=== PATIENT | male | born 1950 | race Caucasian/White ===

== ENCOUNTER 2017-07-17 08:27 | Day surgery (SDC) | payer OTHER ==
[~2017-07-17] VITALS: Ht 188 cm; Wt 119.0 kg
[~2017-07-17 08:27] MED LIST: ASPI-232 PO; CEFAZOLIN 1000MG/55 ML D5W 55 ML IV SCH; CEFAZOLIN IV 1,000 MG in DEXTROSE 5% 50ML IV SCH; FOLI1TAB7 PO; FURO-85 PO; INSPMPNVLG; LACTATED RINGER'S 1000ML IV SCH; LISI-461 PO; METF-384 PO; METO1TAB69 PO; OMEP40CA PO; POTA-74 PO; TRAM-10 PO
[2017-07-17 09:15] VITALS: BP 163/94; PULSE 71; TEMP 36.7; O2SAT 97; Ht 188 cm; Wt 119.0 kg
[2017-07-17] MEDS ORDERED: OMEP20TA14 PO (09:15)
[2017-07-17] MEDS ORDERED: ATOR-26 PO (09:15)
[2017-07-17] MEDS ORDERED: NTRGSL/4 UT (09:15)
[2017-07-17] MEDS ORDERED: ESCI10TA17 PO (09:15)
--- NOTE | 2017-07-17 10:52 | History & Physical Bridge Note ---
H&P Re-Evaluation Bridge Note: I have examined the patient, reviewed the History & Physical and in the interval since the performance of the History & Physical I have noted the following changes of clinical significance: No changes noted
--- NOTE | 2017-07-17 10:52 | Procedure Note ---
Pre-Mod Sedation Assessment General Date of Moderate Sedation: Jul 17, 2017. Vital Signs: Vital Signs Past 12 Hours Date Time Temp Pulse Resp B/P (MAP) Pulse Ox O2 Delivery O2 Flow Rate FiO2 07/17/17 09:15 36.7 71 18 163/94 (117) 97 Room Air Review Cardiovascular: regular rate, rhythm Abdomen: soft Lungs: lungs clear Airway Class: II Pre-Sedation Airway Assessment Oral Cavity: Dentures Hx of Sleep Apnea: No Smoking Status: Former Smoker Mallampati Classification: Class II ASA Classification: Class II Procedure Planning Contraindications-for Mod Sed: None Yes Notes The planned sedation has been discussed with the patient and consent obtained. I have identified the patient, determined the appropriateness of sedation and have assessed the patient immediately prior to the procedure. All medicine(s) and interventions are by my order.
[2017-07-17] MEDS ORDERED: BUPIVACAINE 0.5 % 5 MG/1 ML MPF 30ML VIAL ONE (11:33)
[2017-07-17] MEDS ORDERED: LIDOCAINE HCL 1% 20 ML VIAL ONE (11:33)
[2017-07-17] MEDS ORDERED: BACITRACIN 50000 UNIT VIAL ONE (11:33)
[2017-07-17] MEDS ORDERED: FENTANYL CITRATE INJ 50 MCG/1 ML 2 ML VIAL ONE (11:43)
[2017-07-17] MEDS ORDERED: MIDAZOLAM HCL 5 MG/ML 1 ML VIAL ONE (11:43)
[2017-07-17] MEDS ORDERED: KEFZOL SPECIAL PROCEDURE STOCK 1 GM ADDVIAL IV ONE (11:50)
--- NOTE | 2017-07-17 12:40 | Procedure Note ---
Post-Mod Sedation Assessment General Date of Moderate Sedation Jul 17, 2017. Vital Signs: Vital Signs Past 12 Hours Date Time Temp Pulse Resp B/P (MAP) Pulse Ox O2 Delivery O2 Flow Rate FiO2 07/17/17 12:30 54 16 116/64 (81) 96 Room Air 07/17/17 09:15 36.7 71 18 163/94 (117) 97 Room Air Review - Discharge Criteria Vital Signs Stable: Yes Alert/Oriented/Conversant: Yes Returned to Baseline Mental St: Yes Nausea Absent/Minimal: Yes Pain/Discomfort/Absent/Minimal: Yes Normal/Baseline Respirations: Yes Active Bleeding?: No Pt Received D/C Instructions: N/A Prescriptions Given: None Specific Proced. D/C Criteria Distal Pulses Present (Cardiac: N/A Groin site assessed-Card Cath: N/A Voided Prior To Discharge: N/A Discharged Patients Adult Escort/Transportation: N/A
--- NOTE | 2017-07-17 12:42 | [facility] Post Operative Brief Note ---
Immediate Operative Summary Operative Date Jul 17, 2017. Pre-Operative Diagnosis icm, icd at [facility] Post-Operative Diagnosis same Procedure(s) Performed single chamber rate responsive icd generator change Surgeon charlene meneses General Dentist Surgeon(s) none Estimated Blood Loss <5cc Findings see official report Fluids (cc crystalloids) 150cc Specimens none Drains none Anesthesia 3mg versed and 150mcg fentatnyl Complication(s) None Disposition asu
--- NOTE | 2017-07-17 12:44 | Discharge Instructions ---
Discharge Instructions Date of Service Jul 17, 2017. Visit Reason for Visit: Ischemic Cardiomyopathy Discharge Discharge Diagnosis / Problem: icd at [facility], [facility] Discharge Goals Goal(s): Improve function Activity Recommendations Activity Limitations: as noted below Lifting Limitations: no more than 10 pounds (do not lift more than 10 pounds with the left arm for 2 weeks) May Resume Sexual Activity: after one week Shower/Bathe: tomorrow Driving or Machine Use: resume 1 day after discharge Anesthesia . Post Anesthesia Instructions: If you have had General Anesthesia or IV Sedation: * Do not drive today. * Resume driving when surgeon permits. * Do not make important decisions or sign legal documents today. * Call surgeon for: 1. Temperature elevations greater than 101 degrees F. 2. Uncontrollable pain. 3. Excessive bleeding. 4. Persistent nausea and vomiting. 5. Medication intolerance (nausea, vomiting or rash). * For nausea and vomiting use only clear liquids such as: tea, soda, bouillon until nausea subsides, then gradually increase diet as tolerated. * If you have any concerns or questions, call your surgeon's office. If physician is unavailable and it is an emergency, call 911 or go to the nearest emergency room. . Instructions / Follow-Up Instructions / Follow-Up ACTIVITY RECOMMENDATIONS: * Do not lift more than 10 pounds with the left arm for 2 weeks. SPECIAL CARE INSTRUCTIONS: * If bleeding occurs, apply direct pressure to area for 5 minutes. * Call your doctor if you have severe pain, fever, drainage or bleeding at site. * Keep dry for 24 hours. * Keep any scheduled doctor's appointment. * Implant Card - hand held device with website information given. SKIN IRRITATION: * You may experience some redness and/or swelling in the area where radiation was administered. If any skin irritation occurs, please contact your family physician. FOLLOW UP VISIT: Keep any scheduled doctor appointments. Diet Recommendations Recommended Home Diet: resume previous diet Procedures Procedures Performed: single chamber rate responsive icd generator change Pending Studies Studies pending at discharge: no Medical Emergencies . Who to Call and When: Medical Emergencies: If at any time you feel your situation is an emergency, please call 911 immediately. . Non-Emergent Contact Non-Emergency issues call your: Street Sweeper Operator . . "Provider Documentation" section prepared by Danielle Mendez. .
[2017-07-17 12:50] VITALS: BP 131/67; PULSE 59; TEMP 36.5; O2SAT 95
[2017-07-17 13:06] VITALS: BP 118/63; PULSE 63; O2SAT 94
[2017-07-17 13:23] VITALS: BP 117/60; PULSE 59; O2SAT 94
--- NOTE | 2017-07-17 13:33 | OPERATIVE REPORT ---
DATE OF OPERATION: 07/17/2017 PREOPERATIVE DIAGNOSIS: Ischemic cardiomyopathy, single chamber implantable cardiac defibrillator at [facility]. POSTOPERATIVE DIAGNOSIS: Same. PROCEDURE: Single chamber rate responsive implantable cardiac defibrillator generator change. SURGEON: Dr. Danielle Mendez. SOLID WASTE MANAGER: None. ANESTHESIA: Monitored conscious sedation administered under my supervision by Félix Donovan, total of 3 mg of Versed and 75 mcg of fentanyl. Start time 11:53 a.m., end time 12:30. INTRAVENOUS FLUIDS: 150 mL. BLOOD LOSS: Less than 5 mL. ANTIBIOTICS: 2 grams. COMPLICATIONS: None. CONDITION: Stable. URINE OUTPUT: No applicable. SPECIMENS: None. FINDINGS: None. DRAINS: None. INDICATIONS: This is a 66-year-old gentleman who has past medical history for coronary artery disease which he underwent a myocardial infarction in 2007, underwent CABG x4, BIRCH to LAD, SVG to diagonal, RCA and RV branch block, VTVF arrest, ischemic cardiomyopathy, underwent a single chamber implantable cardiac defibrillator in 2007, ejection fraction 35-40%, hypertension, hyperlipidemia, diabetes, chronic back and shoulder pain. At his most recent device check found to hit [facility] and was recommended a generator change. CONSENT: Consent was obtained prior to the patient going into the electrophysiology lab. The patient was informed of risks, benefits, and alternatives of procedure. Risks include but not limited to sudden cardiac , cardiac arrhythmias, cerebrovascular accident, myocardial infarction, bleeding and infection. The patient understood these risks and agreed to the procedure as planned. Informed consent was obtained. DESCRIPTION OF THE PROCEDURE: The patient was brought into the electrophysiology lab in a fasting state. He was connected to continuous director of cardiac cath lab. A timeout was performed to ensure patient's identity and procedure correctly. The patient received prophylactic antibiotics prior to incision. Moderate conscious sedation was given throughout the procedure for patient's comfort level. [place] precautions maintained throughout procedure. 15 mL of 1% lidocaine, bupivacaine mixture were given over the prior surgical incision. An incision was made over the prior surgical incision. Blunt dissection was performed down to the pulse generator. The capsule was disrupted using Bovie and then the pulse generator was ultimately freed from the capsule and removed from the body. The leads were detached from the pulse generator and tested intraoperatively. The new defibrillator generator was then attached to the leads making sure that the pins were in appropriate position, passed the set screws and the set screws were tightened. The capsule was disrupted inferiorly and caudally to allow for new blood flow. The pocket was then flushed with copious amounts of bacitracin saline wash and inspected for hemostasis. The new pulse generator was then placed in the pocket, making sure that the leads were lying flat beneath the device. The incision was closed in a 3-layer fashion using 2-0 Vicryl interrupted suture followed by 3-0 Vicryl interrupted suture followed by a 4-0 Monocryl running stitch and Dermabond was applied. EQUIPMENT: 1. Explanted generator is Medtronic model #[id number] Nehemias 2, serial number [id number], implanted 10/07/2008. Voltage 2.6 volts at 9917. 2. New defibrillator generator is a Medtronic Visia AF MRI VR SureScan, model number ZOSR2P0, serial number [id number]. 3. Right ventricular lead model number 6947-65, serial number [id number], implanted 10/07/2008. INTRAOPERATIVE TESTING: R-waves 23.2 millivolts, impedance 611 ohms, threshold 0.6 volts at 0.9 milliamps. FINAL MEASUREMENTS THROUGH THE DEVICE: R-waves 20 millivolts, impedance 494 ohms, threshold 0.75 volts at 0.4 milliseconds. RV 53 ohms, SVC 63 ohms. FINAL PARAMETERS: VVI 40, right ventricular amplitude 1.5 volts, pulse width 0.4 milliseconds, sensitivity 0.3 millivolts. A VT monitor zone at 133 beats per minute with 20 detection intervals and a VF zone at 188 beats per minute with 24-32 detection interval. The DFTs back from initial implant 10/07/2008 were 15 joules. IMPRESSION: Successful single chamber rate responsive implantable cardiac defibrillator generator change secondary to ischemic cardiomyopathy and device at [facility]. PLAN: Monitor patient post-sedation. He is not allowed to do any heavy lifting with the left arm for 2 weeks. He can continue his home medications. He should follow up in our device clinic in 7-10 days for device and wound check. I attest to the content of the Intraoperative Record and any orders documented therein. Any exception s are noted below.
[2017-07-17 13:45] VITALS: BP 115/59; PULSE 61; TEMP 36.6; O2SAT 96
== END 2017-07-17 14:00 | disposition home or self-care (01) ==
LOC: C.ACU 08:27
PROVIDERS: ATTEND Internal Medicine
DX: Z45.02 Encounter for adjustment and management of automatic implantable cardiac defibrillator (principal); I25.10 Atherosclerotic heart disease of native coronary artery without angina pectoris; I10 Essential (primary) hypertension; E11.9 Type 2 diabetes mellitus without complications; E78.5 Hyperlipidemia, unspecified; I73.9 Peripheral vascular disease, unspecified; G25.0 Essential tremor; K21.9 Gastro-esophageal reflux disease without esophagitis; I25.2 Old myocardial infarction; Z98.61 Coronary angioplasty status; Z95.1 Presence of aortocoronary bypass graft; Z79.4 Long term (current) use of insulin; Z79.82 Long term (current) use of aspirin; Z87.891 Personal history of nicotine dependence; Z89.422 Acquired absence of other left toe(s); Z80.0 Family history of malignant neoplasm of digestive organs

== ENCOUNTER → 2017-10-24 | Day surgery (SDC) | payer OTHER ==
[2017-10-19 09:25] VITALS: Ht 182.9 cm; Wt 119.1 kg
[~2017-10-24] VITALS: Ht 182.9 cm; Wt 119.1 kg
[~2017-10-24] MED LIST changes: +500ML BSS 0.3ML EPI 1:1000PF IRRIG ONE; +ACET-1256 PO; +ACETAMINOPHEN 325 MG TAB PO PRN; +AMVISC PLUS 0.8ML SYRINGE INT OCU ONE; +ATOR-26 PO; +ATROPINE SULFATE 0.1 MG/ML 5ML SYR IV PRN; +BSS FLUSH ONE; -CEFAZOLIN 1000MG/55 ML D5W 55 ML IV SCH; -CEFAZOLIN IV 1,000 MG in DEXTROSE 5% 50ML IV SCH; +ENDOCOAT 0.85ML SYRINGE INT OCU ONE; +ESCI5TAB PO; +EpHEDrine SULFATE INJ 50 MG/ML AMP IV PRN; +EpINEphrine INJ 1MG/ML AMP 1 MG/ML AMP ONE; -FOLI1TAB7 PO; +FOLI1TAB8 PO; +LACTATED RINGER'S 1000ML 500 ML IV SCH; -LACTATED RINGER'S 1000ML IV SCH; +LIDOCAINE 4% OP SOLN DROP CHARGE ONE; +LIDOCAINE 4% OP SOLN DROP CHARGE OPL SCH; +LIDOCAINE HCL 1% MPF 2 ML VIAL ONE; -LISI-461 PO; +LSN20 PO; +METO100T44 PO; -METO1TAB69 PO; +MIDAZOLAM HCL 1 MG/ML 2ML VIAL ONE; +MIX: 4ML BSS 1ML EPI 1:1000 PF TOP ONE; +MOXIFLOXACIN OPH SOLN PER DROP CHARGE ONE; +NTRGSL/4 UT; -OMEP40CA PO; +PANT40TA PO; +POVIDONE-IODINE OP SOLN 30 ML BTL ONE; +PROPARACAINE 0.5% OP SOLN PER DROP CHARGE OPL SCH; +TOBRAMYCIN/DEXAMETHASONE OPH OINT PER APPLN CHARGE ONE; -TRAM-10 PO
[2017-10-24] MEDS: PHENYLEPHRINE HCL 2.5% OP SOLN PER DROP CHARGE OPL SCH ×3 (07:16→07:26)
[2017-10-24] MEDS: TROPICAMIDE 1% OP SOLN PER DROP CHARGE OPL SCH ×3 (07:17→07:27)
[2017-10-24] MEDS: CYCLOPENTOLATE HCL 1% OP SOLN PER DROP CHARGE OPL SCH ×3 (07:18→07:28)
[2017-10-24] MEDS: MOXIFLOXACIN OPH SOLN PER DROP CHARGE OPL SCH ×3 (07:19→07:29)
--- NOTE | 2017-10-24 08:37 | [facility] Post Operative Brief Note ---
Immediate Operative Summary Operative Date Oct 24, 2017. Pre-Operative Diagnosis Left eye cataract Post-Operative Diagnosis Same as preop Procedure(s) Performed Left Cataract Phacoemulsification With Intraocular Lens Implant Surgeon Dr. Reese Fitness And Wellness Director Surgeon(s) None Estimated Blood Loss 0 mL Findings left cataract Specimens None Complication(s) None Disposition
--- NOTE | 2017-10-24 08:38 | [facility] Operative Report ---
Operative Report Date of Service Oct 24, 2017. Operative Report DATE OF OPERATION: 10/24/17 PREOPERATIVE DIAGNOSIS: Senile nuclear cataract, left eye POSTOPERATIVE DIAGNOSIS: Senile nuclear cataract, left eye PROCEDURE PERFORMED: Phacoemulsification with intraocular lens implantation, left eye SURGEON: Dr. Migue Reese ANESTHESIA: Topical with 1% intracameral lidocaine and monitored anesthesia care COMPLICATIONS: None DESCRIPTION OF PROCEDURE: After positively identifying the patient both verbally and by wristband in the preoperative area, the left eye was marked as the operative eye. The patient was then brought back to the operating room by the anesthesia and nursing staff where they were given a drop of Lidocaine and betadine into the operative eye. They were then sterilely prepped and draped in the standard fashion typical for ophthalmic surgery. Steri-strips were placed along the upper eyelids to keep the lashes back, and a lid speculum was placed into the operative eye. At this point, a documented time out was performed with members of the ophthalmology, nursing, and anesthesia staffs all agreeing upon the correct patient, correct location for surgery, correct procedure, and correct type and power of intraocular lens to be implanted. The microscope was then swung into position. First, a paracentesis wound was made using a sideport blade. Then, in sequence, 1% preservative-free lidocaine followed by Endocoat viscoelastic was injected into the anterior chamber. Next , the main incision was made with a keratome blade in triplanar fashion. A Malyugin ring was inserted due to poor pupil dilation. A sharp cystotome was introduced into the eye and used to create a tear in the anterior capsule, which was directed into a continuous curvilinear capsulorrhexis using Utrata forceps. Hydrodissection was then performed with BSS on a flat-tip cannula. Next, the phacoemulsification handpiece was introduced into the eye and used to remove the nucleus in a mlrlme-sor-[id number] fashion. This was done without complication and then the irrigation-aspiration handpiece was introduced into the eye and used to remove all remaining cortical and epinuclear material. Amvisc was then injected into the anterior chamber as well as into the capsular bag and using the lens injector system, an MX60 22.0 D lens, serial number [id number], and expiration date 06/2020 was injected into the capsular bag and rotated into the correct position. The Malyugin ring was removed. Next, the irrigation-aspiration handpiece was used to remove all remaining Amvisc. BSS was used to hydrate the main wound, and then BSS was injected into the paracentesis site to reach physiologic pressure and then the main wound was checked and found to be watertight. The patient was given drops of Vigamox and Tobradex ointment into the operative eye, and then the surrounding area was cleaned and dried. A clear plastic shield was placed over the eye and the patient was then sat up and taken from the operating room by the anesthesia staff having tolerated the procedure well and suffering no complications. DISPOSITION: The patient was returned to the recovery room in stable condition. I attest to the content of the Intraoperative Record and any orders documented therein. Any exceptions are noted below.
[2017-10-24 08:39] VITALS: TEMP 36.4
--- NOTE | 2017-10-24 08:40 | Discharge Instructions-SurgCtr ---
Discharge Instructions Date of Service Oct 24, 2017. Visit Reason for Visit: Cataract Left Eye Discharge Discharge Diagnosis / Problem: left cataract Discharge Goals Goal(s): Decrease discomfort, Improve function Medications Stopped Medications Name(s): metformin stopped on sunday Activity Recommendations Activity Limitations: as noted below Anesthesia . Post Anesthesia Instructions: If you have had General Anesthesia or IV Sedation: * Do not drive today. * Resume driving when surgeon permits. * Do not make important decisions or sign legal documents today. * Call surgeon for: 1. Temperature elevations greater than 101 degrees F. 2. Uncontrollable pain. 3. Excessive bleeding. 4. Persistent nausea and vomiting. 5. Medication intolerance (nausea, vomiting or rash). * For nausea and vomiting use only clear liquids such as: tea, soda, bouillon until nausea subsides, then gradually increase diet as tolerated. * If you have any concerns or questions, call your surgeon's office. If physician is unavailable and it is an emergency, call 911 or go to the nearest emergency room. . Instructions / Follow-Up Instructions / Follow-Up ACTIVITY RECOMMENDATIONS: * Light activities. * You may walk outside, read, watch television. * You may notice redness on the white part of the eye and some blurry vision - this is normal. MEDICATIONS: Resume previous medications unless instructed otherwise by your surgeon. Start all eye drops at 10:30am today: * Eye drops (until seen in the office tomorrow): Prednisone - one drop in operative eye every 2 hours while awake Ofloxacin - one drop in operative eye every 2 hours while awake Prolensa - one drop in operative eye daily SPECIAL CARE INSTRUCTIONS: * Tape plastic shield over eye to sleep at night. Call your doctor at with any concerns or problems. FOLLOW UP VISIT: Follow-up with Dr Reese at [place] office as scheduled. Diet Recommendations Home Diet: no limitations Procedures Procedures Performed: Left Cataract Phacoemulsification With Intraocular Lens Implant Pending Studies Studies pending at discharge: no Medical Emergencies . Who to Call and When: Medical Emergencies: If at any time you feel your situation is an emergency, please call 911 immediately. . Non-Emergent Contact Non-Emergency issues call your: Surgeon . . "Provider Documentation" section prepared by Migue Reese. .
[2017-10-24 08:55] VITALS: BP 149/79; PULSE 66; O2SAT 97
--- NOTE | 2017-10-24 09:05 | Anesthesia Progress Nt - [facility] ---
Anesthesia Post Op Note Date & Time Oct 24, 2017 at 09:05 Vital Signs Pain Intensity: 0 Vital Signs Past 12 Hours Date Time Temp Pulse Resp B/P (MAP) Pulse Ox O2 Delivery O2 Flow Rate FiO2 10/24/17 08:55 66 16 149/79 (102) 97 Room Air 10/24/17 08:39 36.4 62 16 159/80 (106) 98 Room Air 10/24/17 07:09 36.4 64 22 135/89 (104) 96 Room Air Notes Mental Status: alert / awake / arousable, participated in evaluation Pt Amnestic to Procedure: Yes Nausea / Vomiting: adequately controlled Pain: adequately controlled Airway Patency, RR, SpO2: stable & adequate BP & HR: stable & adequate Hydration State: stable & adequate Anesthetic Complications: no major complications apparent
== END | disposition home or self-care (01) ==
LOC: X.SURG 07:00
PROVIDERS: ATTEND Ophthalmology
DX: E11.36 Type 2 diabetes mellitus with diabetic cataract (principal); H25.12 Age-related nuclear cataract, left eye; I25.10 Atherosclerotic heart disease of native coronary artery without angina pectoris; I11.0 Hypertensive heart disease with heart failure; E78.00 Pure hypercholesterolemia, unspecified; G47.33 Obstructive sleep apnea (adult) (pediatric); E66.9 Obesity, unspecified; Z95.1 Presence of aortocoronary bypass graft; Z89.429 Acquired absence of other toe(s), unspecified side; F17.200 Nicotine dependence, unspecified, uncomplicated; Z79.82 Long term (current) use of aspirin; Z79.899 Other long term (current) drug therapy; Z79.4 Long term (current) use of insulin

== ENCOUNTER → 2017-11-07 | Day surgery (SDC) | payer OTHER ==
[2017-11-05 14:35] VITALS: Ht 182.9 cm; Wt 119.1 kg
[~2017-11-07] VITALS: Ht 182.9 cm; Wt 119.1 kg
[~2017-11-07] MED LIST changes: -LIDOCAINE 4% OP SOLN DROP CHARGE OPL SCH; +LIDOCAINE 4% OP SOLN DROP CHARGE OPR SCH; -PROPARACAINE 0.5% OP SOLN PER DROP CHARGE OPL SCH; +PROPARACAINE 0.5% OP SOLN PER DROP CHARGE OPR SCH
[2017-11-07] MEDS: PHENYLEPHRINE HCL 2.5% OP SOLN PER DROP CHARGE OPR SCH ×3 (07:24→07:34)
[2017-11-07] MEDS: TROPICAMIDE 1% OP SOLN PER DROP CHARGE OPR SCH ×3 (07:25→07:35)
[2017-11-07] MEDS: CYCLOPENTOLATE HCL 1% OP SOLN PER DROP CHARGE OPR SCH ×3 (07:26→07:36)
[2017-11-07] MEDS: MOXIFLOXACIN OPH SOLN PER DROP CHARGE OPR SCH ×3 (07:27→07:37)
--- NOTE | 2017-11-07 08:40 | [facility] Post Operative Brief Note ---
Immediate Operative Summary Operative Date Nov 07, 2017. Pre-Operative Diagnosis Cataract Right Eye Post-Operative Diagnosis Same Procedure(s) Performed Right Cataract Phacoemulsification With Intraocular Lens Implant Surgeon Dr. Reese Financial Reserve Clerk Surgeon(s) None Estimated Blood Loss 0 Findings Consistent with Post-Op Diagnosis Specimens None Anesthesia Type MAC Disposition Accompanied Pt To Recovery: no Disposition:
[2017-11-07 08:41] VITALS: TEMP 36.7
--- NOTE | 2017-11-07 08:41 | [facility] Operative Report ---
Operative Report Date of Service Nov 07, 2017. Operative Report DATE OF OPERATION: 11/07/17 PREOPERATIVE DIAGNOSIS: Senile nuclear cataract, right eye POSTOPERATIVE DIAGNOSIS: Senile nuclear cataract, right eye PROCEDURE PERFORMED: Phacoemulsification with intraocular lens implantation, right eye SURGEON: Dr. Migue Reese ANESTHESIA: Topical with 1% intracameral lidocaine and monitored anesthesia care COMPLICATIONS: None DESCRIPTION OF PROCEDURE: After positively identifying the patient both verbally and by wristband in the preoperative area, the right eye was marked as the operative eye. The patient was then brought back to the operating room by the anesthesia and nursing staff where they were given a drop of Lidocaine and betadine into the operative eye. They were then sterilely prepped and draped in the standard fashion typical for ophthalmic surgery. Steri-strips were placed along the upper eyelids to keep the lashes back, and a lid speculum was placed into the operative eye. At this point, a documented time out was performed with members of the ophthalmology, nursing, and anesthesia staffs all agreeing upon the correct patient, correct location for surgery, correct procedure, and correct type and power of intraocular lens to be implanted. The microscope was then swung into position. First, a paracentesis wound was made using a sideport blade. Then, in sequence, 1% preservative-free lidocaine followed by Endocoat viscoelastic was injected into the anterior chamber. Next , the main incision was made with a keratome blade in triplanar fashion. A Malyugin ring was inserted due to poor pupil dilation. A sharp cystotome was introduced into the eye and used to create a tear in the anterior capsule, which was directed into a continuous curvilinear capsulorrhexis using Utrata forceps. Hydrodissection was then performed with BSS on a flat-tip cannula. Next, the phacoemulsification handpiece was introduced into the eye and used to remove the nucleus in a [id number] fashion. This was done without complication and then the irrigation-aspiration handpiece was introduced into the eye and used to remove all remaining cortical and epinuclear material. Amvisc was then injected into the anterior chamber as well as into the capsular bag and using the lens injector system, an MX60 22.0 D lens, serial number [id number], and expiration date 06/2020 was injected into the capsular bag and rotated into the correct position. The Malyugin ring was removed. Next, the irrigation-aspiration handpiece was used to remove all remaining Amvisc. BSS was used to hydrate the main wound, and then BSS was injected into the paracentesis site to reach physiologic pressure and then the main wound was checked and found to be watertight. The patient was given drops of Vigamox and Tobradex ointment into the operative eye, and then the surrounding area was cleaned and dried. A clear plastic shield was placed over the eye and the patient was then sat up and taken from the operating room by the anesthesia staff having tolerated the procedure well and suffering no complications. DISPOSITION: The patient was returned to the recovery room in stable condition. I attest to the content of the Intraoperative Record and any orders documented therein. Any exceptions are noted below.
--- NOTE | 2017-11-07 08:42 | Discharge Instructions-SurgCtr ---
Discharge Instructions Date of Service Nov 07, 2017. Visit Reason for Visit: Cataract Right Eye Discharge Discharge Diagnosis / Problem: right cataract Discharge Goals Goal(s): Decrease discomfort, Improve function Medications Stopped Medications Name(s): metformin stopped. last dose on sunday evening. Activity Recommendations Activity Limitations: as noted below Anesthesia . Post Anesthesia Instructions: If you have had General Anesthesia or IV Sedation: * Do not drive today. * Resume driving when surgeon permits. * Do not make important decisions or sign legal documents today. * Call surgeon for: 1. Temperature elevations greater than 101 degrees F. 2. Uncontrollable pain. 3. Excessive bleeding. 4. Persistent nausea and vomiting. 5. Medication intolerance (nausea, vomiting or rash). * For nausea and vomiting use only clear liquids such as: tea, soda, bouillon until nausea subsides, then gradually increase diet as tolerated. * If you have any concerns or questions, call your surgeon's office. If physician is unavailable and it is an emergency, call 911 or go to the nearest emergency room. . Instructions / Follow-Up Instructions / Follow-Up ACTIVITY RECOMMENDATIONS: * Light activities. * You may walk outside, read, watch television. * You may notice redness on the white part of the eye and some blurry vision - this is normal. MEDICATIONS: Resume previous medications unless instructed otherwise by your surgeon. Start all eye drops at 10: 30 am today: * Eye drops (today): Prednisone - one drop in operative eye every 2 hours while awake Ofloxacin - one drop in operative eye every 2 hours while awake Prolensa - one drop in operative eye daily SPECIAL CARE INSTRUCTIONS: * Tape plastic shield over eye to sleep at night. Call your doctor at with any concerns or problems. FOLLOW UP VISIT: Follow-up with Dr Reese at [place] office as scheduled. Diet Recommendations Home Diet: no limitations Procedures Procedures Performed: Right Cataract Phacoemulsification With Intraocular Lens Implant Pending Studies Studies pending at discharge: no Medical Emergencies . Who to Call and When: Medical Emergencies: If at any time you feel your situation is an emergency, please call 911 immediately. . Non-Emergent Contact Non-Emergency issues call your: Surgeon . . "Provider Documentation" section prepared by Migue Reese. .
[2017-11-07 09:11] VITALS: BP 160/73; PULSE 59; O2SAT 96
--- NOTE | 2017-11-07 09:15 | Anesthesia Progress Nt - [facility] ---
Anesthesia Post Op Note Date & Time Nov 07, 2017 at 09:14 Vital Signs Pain Intensity: 0 Vital Signs Past 12 Hours Date Time Temp Pulse Resp B/P (MAP) Pulse Ox O2 Delivery O2 Flow Rate FiO2 11/07/17 09:11 59 16 160/73 (102) 96 Room Air 11/07/17 08:41 36.7 75 18 164/80 (108) 95 Room Air 11/07/17 07:17 36.6 59 18 108/76 (87) 96 Room Air Notes Mental Status: alert / awake / arousable, participated in evaluation Pt Amnestic to Procedure: Yes Nausea / Vomiting: adequately controlled Pain: adequately controlled Airway Patency, RR, SpO2: stable & adequate BP & HR: stable & adequate Hydration State: stable & adequate Anesthetic Complications: no major complications apparent
== END | disposition home or self-care (01) ==
LOC: X.SURG 07:00
PROVIDERS: ATTEND Ophthalmology
DX: E11.36 Type 2 diabetes mellitus with diabetic cataract (principal); H25.11 Age-related nuclear cataract, right eye; G47.33 Obstructive sleep apnea (adult) (pediatric); E66.9 Obesity, unspecified; Z98.42 Cataract extraction status, left eye; Z89.429 Acquired absence of other toe(s), unspecified side